=== PATIENT | female | born 1965 | race African-American/Black ===

== ENCOUNTER 2024-04-06 13:35 | Emergency (ER) | payer BC ==
[2024-04-06] MEDS ORDERED: Lorazepam 2 MG/ML VIAL ONE (13:50)
[2024-04-06] MEDS ORDERED: Iopamidol-370 76% 500 ML MDV (1 ML CHARGE) ONE (14:07)
[2024-04-06] MEDS ORDERED: Sodium Chloride 0.9% 100 ML ONE (14:19)
[2024-04-06] MEDS ORDERED: Cefepime 2 GM VIAL ONE (14:19)
[2024-04-06 14:21] LABS: Actual Bicarbonate (HCO3v) 24.7 mEq/L (22-28); Analyzer IN Cardio ER; Base Excess 1.3 mEq/L (-2.0 to +3.0); Chloride (VBG) 100 mmol/L (98-106); Hematocrit-VBG 27 % (36.0-47.0); Hemoglobin (Hb) 9.2 g/dL (11.7-16.0); Potassium (VBG) 4.46 mmol/L (3.70-5.30); Sodium 137 mmol/L (133-146); pH (venous) 7.476 (7.32-7.43)
[2024-04-06 14:41] LABS: Hematocrit 24.8 % (36.0-47.0); Hemoglobin 8.3 g/dL (12.0-16.0); Mean Corpuscular HGB CONC 33.5 g/dL (32.0-36.0); Mean Corpuscular Hemoglobin 21.3 pg (27.0-31.0); Mean Corpuscular Volume 63.6 fL (78.0-98.0); Platelet Count 375 10x3/uL (130-400); RBC Distribution Width 16.9 % (11.5-14.5)
[2024-04-06 14:51] LABS: Lipase 4 U/L (8-78)
[2024-04-06 14:52] LABS: Troponin I Less than 0.010 ng/mL (< 0.028)
[2024-04-06 14:53] LABS: ALT (SGPT) 52 U/L (Less than 34); AST (SGOT) 94 U/L (11-34); Albumin 1.8 g/dL (3.1-4.5); Alkaline Phosphatase 128 U/L (40-110); Anion Gap 15 mmol/L (10-20); BUN (Urea Nitrogen) 41 mg/dL (9.8-20.1); Bilirubin, Total 1.3 mg/dL (0.3-1.2); CK (CPK) 999 U/L (29-168); Calc. Creatinine Clearance 0 mL/min (70-130); Calcium 9.2 mg/dL (7.8-10.44); Carbon Dioxide 23 mmol/L (22-29); Chloride 100 mmol/L (98-107); Estimated GFR 98; Globulin 5.9 g/dL (2.4-3.5); Glucose 139 mg/dL (70-105); Potassium 4.3 mmol/L (3.5-5.1); Protein, Total 7.6 g/dL (6.0-8.3); Sodium 134 mmol/L (136-145)
[2024-04-06 14:54] LABS: Acetaminophen Less than 10 mcg/mL (Less than 10); Alcohol Less than 10.0 mg/dL (Less than 10); Salicylate Less than 8.0 mg/dL (Less than 8.0)
[2024-04-06 15:03] LABS: Anisocytosis SLIGHT = 6-15 cells HPF (0-5); Band 15 % (5-11); Large Platelets 11.3 % (0-5); Lymphocytes 12 % (21-51); Metamyelocyte 1 % (0-0); Microcytosis SLIGHT = 6-15 cells HPF (0-5); Monocytes 4 % (0-10); Myelocyte 1 % (0-0); Neutrophil 65 % (42-75); Platelet Adequacy Comment Platelets Normal; Polychromasia SLIGHT = 2-3 cells HPF (0-2); Reactive Lymphocytes 1 % (0-10); Smudge Cells 4.7 %; Target Cells SLIGHT = 2-5 cells HPF (0-1); Tear Drops SLIGHT = 2-5 cells HPF (0-1)
[2024-04-06] MEDS ORDERED: Vancomycin (BATCH) 2 GM/500 ML BAG ONE (15:37)
[2024-04-06 17:38] LABS: Lactic Acid 1.54 mmol/L (0.50-2.20)
[2024-04-06] MEDS ORDERED: fentaNYL 50 mcg/mL 1 mL Vial ONE (17:39)
[2024-04-06] MEDS ORDERED: Acetaminophen 650 MG Suppository ONE (19:43)
[2024-04-06] MEDS ORDERED: HYDROmorphone 0.5 MG/0.5 ML SYRINGE ONE (21:43)
== END 2024-04-06 22:06 | disposition short-term general hospital (02) ==
LOC: ERS 13:35
DX: A41.9 Sepsis, unspecified organism (principal); R65.20 Severe sepsis without septic shock; M13.88 Other specified arthritis, other site
CPT/HCPCS: 36415; 36556; 70450; 71045; 71275; 74177; 80053; 80307; 82140; 82550; 82805; 83605; 83690; 83880; 84443; 84484; 85025; 87040; 87076; 87077; 87149; 87186; 93005; 94760; 96365; 96366; 96367; 96372; 96375; J0692; J1171; J2060; J3010; J3370; Q9967